=== PATIENT | female | born 1965 | race Caucasian/White ===

== ENCOUNTER 2016-10-27 13:18 | Outpatient (CLI) | payer OTHER ==
--- NOTE | 2016-10-27 15:51 | DIAGNOSTIC IMAGING REPORT ---
PROCEDURE: MR BRAIN WITHOUT CONTRAST INDICATION: VERTIGO TECHNIQUE: Multiplanar multisequence MRI imaging of the brain without contrast. COMPARISON: None available FINDINGS: There is hydrocephalus involving the lateral ventricles well as the third ventricle. There is stenosis at the inferior aspect of the aqued[place] of [place]. Signal throughout the jerome and white matter is normal. No restricted diffusion to suggest acute ischemia. No evidence of acute or chronic intraparenchymal or extra-axial hemorrhage. No mass, mass effect, or midline shift. Normal signal in the visible bones. The sinuses are normally aerated. Visible extracranial soft tissues including the orbits are normal. IMPRESSION: 1. Moderate hydrocephalus. Aqueductal stenosis. Results were called to Dr. Jhonatan Villalobos at 03:45 p.m.
== END 2016-10-27 23:00 ==
LOC: MRI SRH 13:18
DX: R42 Dizziness and giddiness (principal); G91.9 Hydrocephalus, unspecified